=== PATIENT | female | born 1950 | race Caucasian/White ===

== ENCOUNTER 2023-12-02 13:28 | Emergency (ER) | payer MEDICARE, BC ==
[~2023-12-02] VITALS: Ht 160 cm; Wt 65.0 kg
[~2023-12-02 13:28] MED LIST: ALTACE 10MG TAB10 MG PO; ASPIRIN 81M81 MG/TA2 PO; BYSTOLIC10 MG PO; CRESTOR20 MG PO; HCTZ 25MG TAB25 MG PO; METOPROLOL SUCC; PAXIL 20MG20 MG PO; PROTONIX 40MG T40 MG PO
[2023-12-02 13:34] VITALS: TEMP 98.3
[2023-12-02 15:33] VITALS: BP 143/83; PULSE 64
== END 2023-12-02 15:33 | disposition home or self-care (01) ==
LOC: COL.ER 13:28
DX: S09.90XA Unspecified injury of head, initial encounter (principal); S00.03XA Contusion of scalp, initial encounter; Z79.01 Long term (current) use of anticoagulants; Z79.02 Long term (current) use of antithrombotics/antiplatelets; W18.30XA Fall on same level, unspecified, initial encounter